=== PATIENT | male | born 1980 | race Caucasian/White ===

== ENCOUNTER 2018-07-14 07:38 | Outpatient (REF) | payer BC, SELFPAY ==
[2018-07-14 13:04] LABS: Cholesterol 164 mg/dL (50-200); Glucose 96 mg/dL (70-100); HDL Cholesterol 48 mg/dL (40-60); LDL CHOLESTEROL 103 mg/dL (<100); Triglyceride 134 mg/dL (30-150)
== END 2018-07-14 07:58 ==
LOC: NCHCN 07:38
PROVIDERS: PCP Family Medicine; Visit Provider Nurse Practitioner Family
DX: R03.0 Elevated blood-pressure reading, without diagnosis of hypertension (principal)
CPT/HCPCS: 80061; 82947; 83721

== ENCOUNTER 2018-11-23 08:45 | Emergency (ER) | payer BC, SELFPAY ==
[2018-11-23 08:52] VITALS: BP 159/101; PULSE 116; RESP 20; TEMP 36.9; O2SAT 98
[2018-11-23 08:55] VITALS: BP 146/92
--- NOTE | 2018-11-23 09:12 | W.ED.GENAD ---
Discharge Plan Disposition Patient Disposition: HOME Condition: Improving Discharge Details Chief Complaint: Allergic Clinical Impression: Hives Primary Care Provider: Kailee Michelle ED Provider: Ward Adler Discharge Instructions Instructions: Urticaria (ED) Additional Instructions: Return to the emergency department for any further concerns otherwise follow-up with your primary care provider as needed for reassessment. Please avoid any allergenic sources and it is recommended that you change your shower products to hypoallergenic. Referrals: Kailee Michelle MD [Primary Care Provider] - (As needed for reassessment) Discharge Data Discharge Date/Time-TO BE ENTERED AT DEPARTURE: 11/23/18 10:05 Medical Decision Making Patient presenting to the emergency department for chief complaint of allergic reaction, hives. Patient states that this occurred after being in the shower today and he noticed red itchy hives starting from his lower extremities spreading up into his chest. Patient denies any new soaps lotions or medications. He does state previous episodes of significant allergic reactions, hives, and breathing issues with multiple antibiotics, Benadryl, and food allergies. He denies any known contact with his allergies this morning. He does report taking his Zyrtec prior to coming to the emergency department. Physical exam is unremarkable with no stridor, normal HEENT exam, normal respiratory and cardiac exam, no obvious urticaria, red rash. Patient does appear slightly anxious otherwise no other findings noted on exam. Given patient's significant history of allergies with apparent hives this morning I do feel that it is reasonable to give patient single dose of Decadron to cover for any return of reaction but otherwise patient was observed in the emergency department and discharged with reassessment and continued to be asymptomatic. After discussion of diagnosis and plan of care patient has no further needs, questions, or concerns and states clear understanding to return to the emergency department for any worsening symptoms. HPI General Mode of arrival: ambulatory. Date/Time Provider Initiated Documentation: 11/23/18 08:48. Limitations to Documentation: no limitations. Information obtained by: RN notes reviewed. History of Present Illness 38 year old M presents to the emergency department with the chief complaint of Allergic reaction, hives, described as moderate and similar to prior episodes, Quality is described as other (Denies pain), Patient started experiencing this minute(s) (30) and it has been constant. Patient notes no other symptoms.. Patient did receive the following treatments prior to arrival, other ([facility]) Related Data Allergies Allergy/AdvReac Type Severity Reaction Status Date / Time Cephalosporins Allergy Severe Anaphylaxsi Unverified 11/23/18 08:55 s diphenhydramine HCl Allergy Severe Unverified 11/23/18 08:55 [From Benadryl] Penicillins Allergy Severe Anaphylaxsi Unverified 11/23/18 08:55 s Sulfa (Sulfonamide Allergy Severe Anaphylaxsi Unverified 11/23/18 08:55 Antibiotics) s General Stated Complaint: Allergic BHANU: 2 Review of Systems Constitutional Denies body ache(s), Denies chills and Denies fever(s) ENT Denies dizziness, Denies hoarseness, Denies lip swelling, Denies throat swelling and Denies tongue swelling Cardiovascular Denies chest pain, Denies syncope and Denies dyspnea Respiratory Denies dyspnea Gastrointestinal Denies abdominal pain, Denies nausea and Denies vomiting Integumentary/Breasts Reports as per HPI, Reports pruritus and Reports rash Neurologic Denies confusion, Denies dizziness, Denies syncope and Denies sensory deficit Psychiatric Denies confusion Allergic/Immunologic Denies lip swelling, Denies throat swelling and Denies tongue swelling [facility] Social History Smoking and Tabacco status: Never Exam Const General: cooperative, no acute distress and not ill appearing Orientation: alert, awake and oriented x3 HENMT Head: normal to inspection and normocephalic General nose exam: external nose normal and nares normal Mouth: oral mucosae normal, lip normal, tongue normal, moist mucous membranes, no audible dysphonia, no drooling, no muffled voice and no trismus Throat: posterior oropharynx normal, tonsils normal and uvula midline Chest Chest: normal inspection of the chest Resp Effort & Inspection: normal respiratory effort, able to speak in complete sentences and no respiratory distress Cardio Rate: regular rate Rhythm: regular rhythm Heart Sounds: S1 normal and S2 normal GI Inspection: normal to inspection Skin General skin exam: no rashes or lesions noted and no erythema Course Vital Signs Temperature 36.9 C 11/23/18 08:52 Pulse 116 H 11/23/18 08:52 Respiratory Rate 20 11/23/18 08:52 Blood Pressure 159/101 H 11/23/18 08:52 Pulse Oximetry 98 11/23/18 08:52 Temperature 36.9 C 11/23/18 08:52 Temperature Source Temporal Artery Scan 11/23/18 08:52 Pulse 116 H 11/23/18 08:52 Respiratory Rate 20 11/23/18 08:52 Respiratory Effort Non-Labored 11/23/18 08:56 Respiratory Pattern Normal 11/23/18 08:56 Blood Pressure 146/92 H 11/23/18 08:55 Blood Pressure Position Sitting 11/23/18 08:52 Pulse Oximetry 98 11/23/18 08:52 Oxygen Delivery Method Room Air 11/23/18 08:52 Oxygen Flow Rate 0 11/23/18 08:52 Pain Level 0 11/23/18 08:52
--- NOTE | 2018-11-23 09:18 | ED.GENADUL_ITS ---
Discharge Plan Disposition Patient Disposition: HOME Condition: Improving Discharge Details Chief Complaint: Allergic Clinical Impression: Hives Primary Care Provider: Kailee Michelle ED Provider: Ward Adler Discharge Instructions Instructions: Urticaria (ED) Additional Instructions: Return to the emergency department for any further concerns otherwise follow-up with your primary care provider as needed for reassessment. Please avoid any allergenic sources and it is recommended that you change your shower products to hypoallergenic. Referrals: Kailee Michelle MD [Primary Care Provider] - (As needed for reassessment) Discharge Data Discharge Date/Time-TO BE ENTERED AT DEPARTURE: 11/23/18 10:05 Medical Decision Making Patient presenting to the emergency department for chief complaint of allergic reaction, hives. Patient states that this occurred after being in the shower today and he noticed red itchy hives starting from his lower extremities spreading up into his chest. Patient denies any new soaps lotions or medications. He does state previous episodes of significant allergic reactions, hives, and breathing issues with multiple antibiotics, Benadryl, and food allergies. He denies any known contact with his allergies this morning. He does report taking his Zyrtec prior to coming to the emergency department. Physical exam is unremarkable with no stridor, normal HEENT exam, normal respiratory and cardiac exam, no obvious urticaria, red rash. Patient does appear slightly anxious otherwise no other findings noted on exam. Given patient's significant history of allergies with apparent hives this morning I do feel that it is reasonable to give patient single dose of Decadron to cover for any return of reaction but otherwise patient was observed in the emergency department and discharged with reassessment and continued to be asymptomatic. After discussion of diagnosis and plan of care patient has no further needs, questions, or concerns and states clear understanding to return to the emergency department for any worsening symptoms. HPI General Mode of arrival: ambulatory . Date/Time Provider Initiated Documentation: 11/23/18 08:48 . Limitations to Documentation: no limitations . Information obtained by: RN notes reviewed . History of Present Illness 38 year old M presents to the emergency department with the chief complaint of Allergic reaction, hives, described as moderate and similar to prior episodes, Quality is described as other (Denies pain), Patient started experiencing this minute(s) (30) and it has been constant. Patient notes no other symptoms.. Patient did receive the following treatments prior to arrival, other ([facility]) Related Data Allergies Allergy/AdvReac Type Severity Reaction Status Date / Time Cephalosporins Allergy Severe Anaphylaxsi Unverified 11/23/18 08:55 s diphenhydramine HCl Allergy Severe Unverified 11/23/18 08:55 [From Benadryl] Penicillins Allergy Severe Anaphylaxsi Unverified 11/23/18 08:55 s Sulfa (Sulfonamide Allergy Severe Anaphylaxsi Unverified 11/23/18 08:55 Antibiotics) s General Stated Complaint: Allergic BHANU: 2 Review of Systems Constitutional Denies body ache(s), Denies chills and Denies fever(s) ENT Denies dizziness, Denies hoarseness, Denies lip swelling, Denies throat swelling and Denies tongue swelling Cardiovascular Denies chest pain, Denies syncope and Denies dyspnea Respiratory Denies dyspnea Gastrointestinal Denies abdominal pain, Denies nausea and Denies vomiting Integumentary/Breasts Reports as per HPI, Reports pruritus and Reports rash Neurologic Denies confusion, Denies dizziness, Denies syncope and Denies sensory deficit Psychiatric Denies confusion Allergic/Immunologic Denies lip swelling, Denies throat swelling and Denies tongue swelling [facility] Social History Smoking and Tabacco status: Never Exam Const General: cooperative, no acute distress and not ill appearing Orientation: alert, awake and oriented x3 HENMT Head: normal to inspection and normocephalic General nose exam: external nose normal and nares normal Mouth: oral mucosae normal, lip normal, tongue normal, moist mucous membranes, no audible dysphonia, no drooling, no muffled voice and no trismus Throat: posterior oropharynx normal, tonsils normal and uvula midline Chest Chest: normal inspection of the chest Resp Effort & Inspection: normal respiratory effort, able to speak in complete sentences and no respiratory distress Cardio Rate: regular rate Rhythm: regular rhythm Heart Sounds: S1 normal and S2 normal GI Inspection: normal to inspection Skin General skin exam: no rashes or lesions noted and no erythema Course Vital Signs Temperature 36.9 C 11/23/18 08:52 Pulse 116 H 11/23/18 08:52 Respiratory Rate 20 11/23/18 08:52 Blood Pressure 159/101 H 11/23/18 08:52 Pulse Oximetry 98 11/23/18 08:52 Temperature 36.9 C 11/23/18 08:52 Temperature Source Temporal Artery Scan 11/23/18 08:52 Pulse 116 H 11/23/18 08:52 Respiratory Rate 20 11/23/18 08:52 Respiratory Effort Non-Labored 11/23/18 08:56 Respiratory Pattern Normal 11/23/18 08:56 Blood Pressure 146/92 H 11/23/18 08:55 Blood Pressure Position Sitting 11/23/18 08:52 Pulse Oximetry 98 11/23/18 08:52 Oxygen Delivery Method Room Air 11/23/18 08:52 Oxygen Flow Rate 0 11/23/18 08:52 Pain Level 0 11/23/18 08:52
[2018-11-23] MEDS: Dexamethasone 10 MG/ML VIAL PO (10:02)
--- NOTE | 2018-11-23 13:12 | NUR.NOTE ---
Nursing Note: Patient called asking for a referral to ENT. I spoke with Ruddy Adler NP and he stated to tell the patient to follow up with PCP and talk about a referral with them. I told the patient this and he was agreeable with the decision. Rubia Hamilton.
[2018-11-23 13:39] VITALS: BP 146/92; PULSE 116; RESP 20; TEMP 36.9; O2SAT 98
== END 2018-11-23 10:05 | disposition home or self-care (01) ==
PROVIDERS: Emergency Provider Nurse Practitioner Family; PCP Family Medicine
DX: L50.9 Urticaria, unspecified (principal)
CPT/HCPCS: 99282; J1100